=== PATIENT | female | born 2000 | race Caucasian/White ===

== ENCOUNTER 2019-06-28 21:38 | Emergency (ER) | payer SELFPAY ==
[2019-06-28 21:57] VITALS: BP 109/66
[2019-06-28 23:32] LABS: Basophils # (Auto) 0.1 K/mm3 (0.0-0.1); Basophils % (Auto) 0.7 % (0.0-1.8); Eosinophils # (Auto) 0.1 K/mm3 (0.0-0.4); Eosinophils % (Auto) 0.7 % (0.0-4.3); Hematocrit 40.8 % (30.3-42.9); Hemoglobin 13.8 gm/dl (10.1-14.3); Lymphocytes % (Auto) 22.6 % (13.4-35.0); Mean Corpuscular HGB Conc 34 % (30-34); Mean Corpuscular Volume 89 fl (79-97); Monocytes # (Auto) 0.9 K/mm3 (0.0-0.8); Platelet Count 354 K/mm3 (140-440); Red Blood Count 4.59 M/mm3 (3.65-5.03); Red Cell Distribution Width 13.3 % (13.2-15.2)
[2019-06-29 00:16] LABS: Bacteria,Urine 1+ /HPF (Negative); Bilirubin,Urine NEG (Negative); Blood,Urine MOD (Negative); Color,Urine Yellow (Yellow); Mucus,Urine FEW /HPF; Protein,Urine <15 mg/dL mg/dL (Negative); Urobilinogen,Urine < 2.0 mg/dL (<2.0)
--- NOTE | 2019-06-29 00:55 | Emergency Department Report ---
ED Female HPI - General Chief complaint: Abdominal Pain Stated complaint: /(LEFT) LOWER ABD PAIN Time Seen by Provider: 06/29/19 00:50 Source: patient Mode of arrival: Ambulatory Limitations: No Limitations - History of Present Illness Initial comments: 19-year-old -Irish female presents to the emergency room stating she has lower abdominal pain. Patient states that she took a test yesterday and it was positive. Patient reports that the abdominal pain is intermittent and sharp. Denies any vaginal bleeding. She is 1 para 0 last menstrual period 05/24/2019. Does admit to some vaginal discharge. She has no past medical history currently takes no medications on a daily basis. MD Complaint: pelvic pain -: This afternoon Severity scale (0 -10): 2 Quality: sharp Consistency: intermittent Are you Now?: Yes Last Menstrual Period: 05/24/19 EDC: 02/28/20 Associated Symptoms: vaginal discharge. denies: nausea/vomiting, fever/chills, headaches, dysuria, shortness of breath, syncope, weakness - Related Data Sexually active: Yes : 1 Previous Rx's Medication Instructions Recorded Last Taken Type Vit-Fe Fumar-FA [ 1 tab PO QDAY #90 tablet 06/29/19 Unknown Rx Vitamin] Allergies Allergy/AdvReac Type Severity Reaction Status Date / Time No Known Allergies Allergy Unverified 06/28/19 22:55 ED Review of Systems ROS: Stated complaint: /(LEFT) LOWER ABD PAIN Other details as noted in HPI Comment: All other systems reviewed and negative ED Past Medical Hx - Past Medical History Previous Medical History?: No - Surgical History Past Surgical History?: No - Social History Smoking Status: Former Smoker Substance Use Type: None - Medications Home Medications: Home Medications Medication Instructions Recorded Confirmed Last Taken Type Vit-Fe Fumar-FA [ 1 tab PO QDAY #90 tablet 06/29/19 Unknown Rx Vitamin] ED Physical Exam - General Limitations: No Limitations ED Course Vital Signs 06/28/19 21:54 Temperature 98.4 F Pulse Rate 95 H Respiratory 18 Rate Blood Pressure 109/66 O2 Sat by Pulse 99 Oximetry ED Medical Decision Making - Lab Data Result diagrams: 06/28/19 23:13 - Radiology Data Radiology results: report reviewed Patient: EUGENIO DOONNELL MR#: [id number] : 2000 Acct:[id number] Age/Sex: 19 / F ADM Date: 06/28/19 Loc: ED Attending Dr: Ordering Physician: PEÑA SCHMITT III, MD Date of Service: 06/28/19 Procedure(s): US OB transvaginal Accession Number(s): [id number] cc: PEÑA SCHMITT III, MD ULTRASOUND OBSTETRIC Indication: abdominal pain Findings: There is a small focus of fluid in endometrial cavity with prominent decidual reaction within the endometrium. This may represent an early gestational sac. No pole or yolk sac is seen within it. The ovaries are unremarkable. There is no free fluid. There are no adnexal masses. Impression: There is a small amount of fluid in the endometrial cavity with prominent decidual reaction. This may represent an early intrauterine . The fluid collection to correspond to a 5 week gestational sac. No free fluid is seen. There are no adnexal masses identified. Follow-up ultrasound imaging should be obtained as clinically warranted. Signer Name: Rene Goodwin MD Signed: 06/29/2019 1:14 AM Workstation Name: [id number] Transcribed By: Dictated By: Rene Goodwin MD Electronically Authenticated By: Rene Goodwin MD Signed Date/Time: 06/29/19 011 DD/ 6 TD/TT: - Medical Decision Making 19-year-old -Irish female presents to the emergency room stating she has lower abdominal pain. Patient states that she took a test yesterday and it was positive. Patient reports that the abdominal pain is intermittent and sharp. Denies any vaginal bleeding. She is 1 para 0 last menstrual period 05/24/2019. Does admit to some vaginal discharge. She has no past medical history currently takes no medications on a daily basis. Ultrasound shows you probably about 5 weeks . Would like for you to follow-up with an [facility] ACC[facility] REPRESENTATIVE in 1 week to have a repeat ultrasound and hCG. Pelvic exam is negative for any acute findings. Blood work is stable. Critical care attestation.: If time is entered above; I have spent that time in minutes in the direct care of this critically ill patient, excluding procedure time. ED Disposition Clinical Impression: Pelvic pain Qualifiers: Weeks of gestation: less than 8 weeks Qualified Code(s): Z3A.01 - Less than 8 weeks gestation of Disposition: DC-01 TO HOME OR SELFCARE Is pt being admited?: No Does the pt Need Aspirin: No Condition: Stable Instructions: Abdominal Pain (ED) Additional Instructions: Ultrasound shows you probably about 5 weeks . Would like for you to follow-up with an TERRITORY ACCOUNT REPRESENTATIVE in 1 week to have a repeat ultrasound and hCG. Pelvic exam is negative for any acute findings. Blood work is stable. Prescriptions: Vit-Fe Fumar-FA [ Vitamin] 1 tab PO QDAY #90 tablet [facility] [Primary Care Provider] - 3-5 Days [facility] [Provider Group] - 3-5 Days [facility] [Provider Group] - 3-5 Days
--- NOTE | 2019-06-29 01:18 | Ultrasound Report ---
ULTRASOUND OBSTETRIC Indication: abdominal pain Findings: There is a small focus of fluid in endometrial cavity with prominent decidual reaction within the end ometrium. This may represent an early gestational sac. No pole or yolk sac is seen within it. The ovaries are unremarkable. There is no free fluid. There are no adnexal masses. Impression: There is a small amount of fluid in the endometrial cavity with prominent decidual reaction. This may represent an early intrauterine . The fluid collection to correspond to a 5 week gestationa l sac. No free fluid is seen. There are no adnexal masses identified. Follow-up ultrasound imaging should be obtained as clinically warranted. Signer Name: Rene Goodwin MD Signed: 06/29/2019 1:14 AM Workstation Name: [id number]
== END 2019-06-29 02:50 | disposition home or self-care (01) ==
LOC: ED 21:38
DX: O26.891 Other specified pregnancy related conditions, first trimester (principal); O99.331 Smoking (tobacco) complicating pregnancy, first trimester; R10.2 Pelvic and perineal pain; Z3A.01 Less than 8 weeks gestation of pregnancy
CPT/HCPCS: 36415; 76801; 76817; 81001; 84702; 85025; 87210; 87591